=== PATIENT | male | born 2000 | race Hispanic/Latino ===

== ENCOUNTER 2023-10-07 10:34 | Emergency (ER) | payer MEDICAID, SELFPAY ==
[2023-10-07 11:49] LABS: SARS-CoV-2 NAA Rapid Test Not Detected (NotDetected)
== END 2023-10-07 12:37 | disposition home or self-care (01) ==
LOC: ERS 10:34
DX: J10.1 Influenza due to other identified influenza virus with other respiratory manifestations (principal)
CPT/HCPCS: 99283